=== PATIENT | female | born 1985 | race African-American/Black ===

== ENCOUNTER 2021-11-24 14:43 | Emergency (ER) | payer OTHER ==
[2021-11-24 14:49] VITALS: BP 104/69; BMI 33.0
[2021-11-24 17:02] VITALS: PULSE 85; TEMP 97.8
== END 2021-11-24 19:45 | disposition home or self-care (01) ==
LOC: JER 14:43 → JERFT 14:43 → JER 19:45
DX: M79.602 Pain in left arm (principal)
CPT/HCPCS: 99283-25

== ENCOUNTER 2022-01-10 10:35 | Inpatient (IN) | payer OTHER ==
[2022-01-10 11:31] LABS: BASO % 0.6 % (0-2.0); EOS % 0.4 % (0-4.5); HEMATOCRIT 36.6 % (32.4-45.2); LYMPH % 17.7 % (8-40); MCH 28.8 pg (25.7-33.7); MCHC 32.8 g/dl (32.0-36.0); MEAN CELL VOLUME 87.6 fl (80-96); MEAN PLT VOLUME 11.4 fl (7.5-11.1); MONO % 6.6 % (3.8-10.2); NEUT % 74.7 % (42.8-82.8); PLATELET COUNT 96 10^3/uL (134-434); RBC 4.17 M/mm3 (3.60-5.2); RDW 13.4 % (11.6-15.6); WHITE BLOOD COUNT 6.9 K/mm3 (4.0-10.0)
[2022-01-10 11:36] LABS: INR 1.03 (0.83-1.09); PROTHROMBIN TIME (PATIENT) 11.8 SEC (9.7-13.0)
[2022-01-10 11:39] LABS: ACTIVATED PTT 28.4 SECONDS (25.2-36.5)
[2022-01-10 11:44] VITALS: BMI 33.8
[2022-01-10] MEDS: ELECTROLYTE-148 SOLN 1,000 ML IV SCH (12:00)
[2022-01-10 12:08] LABS: CALCIUM 8.5 mg/dL (8.5-10.1)
[2022-01-10 12:09] LABS: BLOOD UREA NITROGEN 6.7 mg/dL (7-18)
[2022-01-10 12:12] LABS: CREATININE 0.7 mg/dL (0.55-1.3)
[2022-01-10] MEDS ORDERED: AMPICILLIN - 2 GM in SODIUM CHLORIDE 100 ML IVPB ONE (12:16)
[2022-01-10] MEDS ORDERED: OXYTOCIN 30 UNITS in 0.9% NS 30 UNIT/500 ML INFUS.BAG IVPB SCH (12:30)
[2022-01-10 12:31] LABS: ALBUMIN 2.6 g/dl (3.4-5.0)
[2022-01-10 12:36] LABS: BILIRUBIN,TOTAL 0.3 mg/dL (0.2-1); TOT PROT 5.9 g/dl (6.4-8.2)
[2022-01-10] MEDS ORDERED: AMPICILLIN SODIUM 2 GM VIAL ONE (12:37)
[2022-01-10] MEDS ORDERED: OXYTOCIN 30 UNITS in 0.9% NS 30 UNIT/500 ML INFUS.BAG IVPB ONE (12:38)
[2022-01-10] MEDS ORDERED: AMPICILLIN SODIUM 1 GM VIAL ONE ×2 (16:14→20:02)
[2022-01-10] MEDS: AMPICILLIN - 1 GM in SODIUM CHLORIDE 100 ML IVPB SCH ×2 (16:31→20:00)
[2022-01-10] MEDS ORDERED: FENTANYL/BUPIVACAINE/NS/PF - PCEA - 50 ML DISP.SYRIN EP ONE (20:14)
[2022-01-10] MEDS ORDERED: NALOXONE HCL 0.4 MG/ML VIAL IVPUSH PRN (20:53)
[2022-01-10] MEDS: FENTANYL/BUPIVACAINE/NS/PF - PCEA - 50 ML DISP.SYRIN EP SCH (21:00)
[2022-01-11] MEDS ORDERED: AMPICILLIN SODIUM 1 GM VIAL ONE ×2 (00:20→04:03)
[2022-01-11] MEDS: AMPICILLIN - 1 GM in SODIUM CHLORIDE 100 ML IVPB SCH ×2 (00:30→04:06)
[2022-01-11] MEDS: FENTANYL/BUPIVACAINE/NS/PF - PCEA - 50 ML DISP.SYRIN EP SCH (01:00)
[2022-01-11] MEDS: ELECTROLYTE-148 SOLN 1,000 ML IV SCH (01:20)
[2022-01-11] MEDS ORDERED: FENTANYL/BUPIVACAINE/NS/PF - PCEA - 50 ML DISP.SYRIN EP ONE (01:35)
[2022-01-11] MEDS ORDERED: MIDAZOLAM HCL 2 MG/2 ML SINGLE DOSE VIAL ONE (06:25)
[2022-01-11] MEDS ORDERED: morphine SULFATE/PF 1 MG/2 ML (2cc Syringe - QUVA) ONE ×2 (06:56)
[2022-01-11] MEDS ORDERED: ACETAMINOPHEN 1000 MG/100 ML BAG IVPB PRN ×2 (07:36→07:45)
[2022-01-11] MEDS ORDERED: ONDANSETRON 4 MG/2 ML VIAL IVPB PRN ×2 (07:36→07:45)
[2022-01-11] MEDS ORDERED: METHYLERGONOVINE MALEATE 0.2 MG/1 ML AMP IM PRN (07:36)
[2022-01-11] MEDS ORDERED: ACETAMINOPHEN 325 MG TABLET (FP) PO PRN ×2 (07:36→07:45)
[2022-01-11] MEDS ORDERED: IBUPROFEN 800 MG/8 ML IJ IVPB PRN ×2 (07:36→07:45)
[2022-01-11] MEDS ORDERED: SIMETHICONE 80 MG TAB.CHEW (FP) PO PRN (07:45)
[2022-01-11] MEDS ORDERED: oxyCODONE HCL 5 MG TABLET PO PRN (07:45)
[2022-01-11] MEDS ORDERED: IBUPROFEN 600 MG TABLET (FP) PO PRN (07:45)
[2022-01-11] MEDS ORDERED: OXYTOCIN 20 UNITS in 0.9% NS 20 UNIT/1,000 ML INFUS.BAG IV SCH ×2 (07:45)
[2022-01-11] MEDS ORDERED: SENNOSIDES/DOCUSATE COMBO (SENNA PLUS) TABLET (UD) PO PRN (07:45)
[2022-01-11] MEDS ORDERED: IBUPROFEN 800 MG/8 ML IJ IVPB ONE (07:56)
[2022-01-11] MEDS ORDERED: FENTANYL/BUPIVACAINE/NS/PF - PCEA - 50 ML DISP.SYRIN EP SCH (07:59)
[2022-01-11] MEDS: CEFAZOLIN 2 GM in DEXTROSE 5%-WATER 100 ML IVPB SCH ×2 (10:17→17:59)
[2022-01-11] MEDS: PRENATAL VITAMINS W/ FOLIC ACID TABLET (FP) PO SCH (10:21)
[2022-01-12] MEDS: SIMETHICONE 80 MG TAB.CHEW (FP) PO PRN ×4 (02:43→22:09)
[2022-01-12] MEDS: oxyCODONE HCL 5 MG TABLET PO PRN ×3 (02:43→23:40)
[2022-01-12] MEDS ORDERED: BISACODYL 10 MG SUPP.RECT RC PRN ×2 (07:36→07:45)
[2022-01-12] MEDS: IBUPROFEN 600 MG TABLET (FP) PO PRN ×2 (07:43→22:11)
[2022-01-12 09:15] LABS: BASO % 0.2 % (0-2.0); EOS % 0.6 % (0-4.5); HEMOGLOBIN 9.8 GM/dL (10.7-15.3); MCH 28.5 pg (25.7-33.7); MCHC 32.8 g/dl (32.0-36.0); MEAN PLT VOLUME 11.5 fl (7.5-11.1); MONO % 7.2 % (3.8-10.2); PLATELET COUNT 90 10^3/uL (134-434); RBC 3.44 M/mm3 (3.60-5.2); RDW 13.5 % (11.6-15.6); WHITE BLOOD COUNT 11.6 K/mm3 (4.0-10.0)
[2022-01-12] MEDS: PRENATAL VITAMINS W/ FOLIC ACID TABLET (FP) PO SCH (10:14)
[2022-01-12] MEDS: SENNOSIDES/DOCUSATE COMBO (SENNA PLUS) TABLET (UD) PO PRN (22:09)
[2022-01-13] MEDS: IBUPROFEN 600 MG TABLET (FP) PO PRN ×2 (09:53→14:45)
[2022-01-13] MEDS: PRENATAL VITAMINS W/ FOLIC ACID TABLET (FP) PO SCH (09:54)
[2022-01-13] MEDS: SIMETHICONE 80 MG TAB.CHEW (FP) PO PRN ×2 (09:54→23:44)
[2022-01-13] MEDS: SENNOSIDES/DOCUSATE COMBO (SENNA PLUS) TABLET (UD) PO PRN (23:45)
[2022-01-13] MEDS: oxyCODONE HCL 5 MG TABLET PO PRN (23:48)
[2022-01-14] MEDS: IBUPROFEN 600 MG TABLET (FP) PO PRN (07:39)
[2022-01-14 07:57] VITALS: BP 102/64; PULSE 98; TEMP 98.4
[2022-01-14] MEDS: PRENATAL VITAMINS W/ FOLIC ACID TABLET (FP) PO SCH (09:07)
== END 2022-01-14 13:25 | disposition home or self-care (01) | DRG 540 ==
LOC: JLDR 10:35 → J3W 01-11 09:00
PROVIDERS: ADMIT Specialist; ATTEND Specialist
PROC: 10D00Z1 Extraction of Products of Conception, Low, Open Approach (ICD-10-PCS; principal; 2022-01-11)
DX: O48.0 Post-term pregnancy (principal); O76 Abnormality in fetal heart rate and rhythm complicating labor and delivery; O62.0 Primary inadequate contractions; O62.1 Secondary uterine inertia; Z37.0 Single live birth; Z3A.41 41 weeks gestation of pregnancy
CPT/HCPCS: 36415; 80048; 80053; 85025; 85610; 85730; 86780; 86850; 86900; 86901; 88307-TC; C9803-CS; U0003; U0005

== ENCOUNTER 2022-06-01 06:17 | Day surgery (SDC) | payer OTHER ==
[2022-05-27 17:07] VITALS: BMI 31.1
[2022-06-01] MEDS ORDERED: PROPOFOL 20 ML ONE (09:35)
[2022-06-01] MEDS ORDERED: MIDAZOLAM HCL 2 MG/2 ML SINGLE DOSE VIAL ONE (09:35)
[2022-06-01] MEDS ORDERED: LIDOCAINE HCL/PF 2% SDV 5ML VIAL ONE (09:36)
[2022-06-01] MEDS ORDERED: IBUPROFEN 800 MG/8 ML IJ IVPB PRN (09:51)
[2022-06-01] MEDS ORDERED: oxyCODONE HCL 5 MG TABLET PO PRN (09:51)
[2022-06-01] MEDS ORDERED: ONDANSETRON 4 MG/2 ML VIAL IVPUSH PRN (09:51)
[2022-06-01] MEDS ORDERED: DEXAMETHASONE SOD PHOSPHATE 4 MG/1 ML VIAL ONE (09:52)
[2022-06-01] MEDS ORDERED: LACTATED RINGERS SOLUTION 1,000 ML IV SCH (10:00)
[2022-06-01] MEDS ORDERED: IODINE/POTASSIUM IODIDE 5%/10% 14 ML BOTTLE NR ONE (10:02)
[2022-06-01] MEDS ORDERED: FERRIC SUBSULFATE 500 ML BOTTLE TP ONE (10:10)
[2022-06-01] MEDS ORDERED: KETOROLAC TROMETHAMINE 30 MG/1 ML VIAL ONE (10:14)
[2022-06-01] MEDS ORDERED: IBUPROFEN 400 MG TABLET (FP) PO PRN (11:39)
[2022-06-01] MEDS ORDERED: ACETAMINOPHEN 325 MG TABLET (FP) PO PRN (11:39)
[2022-06-01 13:21] VITALS: BP 115/73; PULSE 84; RESP 18; TEMP 98.3
== END 2022-06-01 13:15 | disposition home or self-care (01) ==
LOC: JASU-SURG 06:17
PROVIDERS: ATTEND Specialist
PROC: 0UBC7ZX Excision of Cervix, Via Natural or Artificial Opening, Diagnostic (ICD-10-PCS; principal; 2022-06-01 08:00)
DX: D06.0 Carcinoma in situ of endocervix (principal)
CPT/HCPCS: 81025; 88307-TC; 94760